=== PATIENT | male | born 1995 | race Caucasian/White ===

== ENCOUNTER 2017-09-06 14:11 | Emergency (ER) | payer MEDICAID ==
[~2017-09-06] VITALS: Ht 185.4 cm; Wt 90.7 kg
[~2017-09-06 14:11] MED LIST: ALBUPOW26; BECL0.07 IN; [UNRECOGNIZED DRUG - CODE]
[2017-09-06 14:35] VITALS: BP 133/56
== END 2017-09-06 15:14 | disposition home or self-care (01) ==
LOC: ER 14:11
DX: S39.012A Strain of muscle, fascia and tendon of lower back, initial encounter (principal); Z79.899 Other long term (current) drug therapy; V43.52XA Car driver injured in collision with other type car in traffic accident, initial encounter; Y93.89 Activity, other specified; Y92.89 Other specified places as the place of occurrence of the external cause; Y99.8 Other external cause status

== ENCOUNTER 2025-02-05 20:10 | Emergency (ER) | payer BC, MEDICAID ==
[~2025-02-05] VITALS: Ht 185.4 cm; Wt 104.0 kg
[2025-02-05 20:11] VITALS: BP 148/92; PULSE 98; RESP 18; TEMP 98.9; O2SAT 97
[2025-02-05] MEDS ORDERED: KETOROLAC TROMETH 60MG/2ML VIAL IM ONE (21:00)
--- NOTE | 2025-02-05 21:33 | ED.PDOC ---
History of Present Illness HPI Comments 29 y/o M, with no pertinent history, presents with c/c mid-back pain. Patient endorses on sudden onset after performing light exertional activity, while playing with his child, earlier. Pain is worse with movement or prolong standing in an upright posture. Denial of any weakness, numbness, tingling, or further associated symptoms. Chief Complaint: Back Pain Time Seen by MD: 20:30 Primary Care Provider: NONE Reviewed Notes: Nurses Notes, Medications, Allergies Allergies: Coded Allergies: Naproxen (Verified Allergy, Unknown, 02/05/25) Home Meds Reported Medications Beclomethasone Dipropionate (Qvar) 40 Mcg Aer, 40 MCG IN, AER 05/04/13 Albuterol (Albuterol) Pow 12/01/12 [Epipen 2-Pak0.3 Mg] (Epipen 2-Fransico) 0.3 MG INJ No Conflict Check, MG 12/01/12 Information Source: Patient Mode of Arrival: Ambulatory Past Medical History PAST MEDICAL HISTORY: Asthma, Denies Surgical History: Denies all surgeries Family History Family History: Unobtainable Social History Smoker: Non-Smoker Alcohol: Denies ETOH Use Drugs: Denies Drug Use Lives In: Home All Other Systems: Reviewed and Negative (As per HPI) Physical Exam General Appearance: No Apparent Distress, Normal HEENT: Normal ENT Inspection, Pharynx Normal, TMs Normal Neck: Full Range of Motion, Non-Tender, Normal, Normal Inspection Respiratory: Chest Non-Tender, Lungs Clear, No Accessory Muscle Use, No Respiratory Distress, Normal Breath Sounds Cardiovascular: No Edema, No JVD, No Murmur, No Gallop, Normal Peripheral Pulses, Regular Rate/Rhythm Breast Exam: Deferred Gastrointestinal: No Organomegaly, Non Tender, No Pulsatile Mass, Normal Bowel Sounds, Soft Genitalia: Deferred Pelvic: Deferred Rectal: Deferred Extremities: No calf tenderness, Normal capillary refill, Normal inspection, Normal range of motion, Non-tender, No pedal edema Musculoskeletal : Location: Bilateral Extremity Location: Back (mid thoracic region ) Apperance: Normal, Tenderness Neurologic: Alert, philosophy instructor II-XII nml as Tested, No Motor Deficits, Normal Affect, Normal Mood, No Sensory Deficits Cerebellar Function: Normal Reflexes: Normal Skin: Dry, Normal Color, Warm Lymphatic: No Adenopathy Was a procedure done? Was a procedure done?: No Differential Dx Considerations may include: sprain, muscle spasm, contusion, fracture, among others X-Ray, Labs, Meds, VS Vital Signs Date Time Temp Pulse Resp B/P (MAP) Pulse Ox O2 Delivery O2 Flow Rate FiO2 02/05/25 20:11 98.9 98 18 148/92 97 98.9 Time of 1ST Reevaluation: 21:00 Reevaluation 1ST: Unchanged Patient Education/Counseling: Diagnosis, Treatment, Need For Follow Up Family Education/Counseling: No Family Present Comments Immediately upon arrival, patient's saw how impacted the lobby was and expressed that he would not be staying he would leave. I convinced him to stay for at least half an hours he even get his studies done and get him out he agreed however patient apparently did elope Additional Information Previous visits: N/A The following tests were ordered, and results were reviewed by me: Thoracic spine X-ray Additional Information was gathered from interviewing the following independent historians: N/A I reviewed and agreed with the following test results read by other providers: Thoracic spine X-ray I discussed treatment and results with medical personnel and: patient SEPSIS Sepsis Screen Date sepsis recognized/suspect: Feb 05, 2025 Time Sepsis recognized/suspect: 2010 Recent Procedure: No On Antibiotic Therapy: No Respiratory Rate >20: No Heart Rate >90: Yes Temp<36 C (96.8 F) or >38.3 C: No SBP <90 or MAP <65 mmHG: No New Acute Mental Status Change: No Is the patient on CPAP, BIPAP,: No Vital Signs Date Time Temp Pulse Resp B/P (MAP) Pulse Ox O2 Delivery O2 Flow Rate FiO2 02/05/25 20:11 98.9 98 18 148/92 97 98.9 Departure 1 Departure Time of Disposition: 01:47 Impression: Primary Impression: Musculoskeletal pain Disposition: 07 LEFT AWOL/ELOPED Condition: Other (Unknown) Critical Care Note Critical Care Time?: No Stability Stability form required: No Heart Score Heart Score: Heart Score Response (Comments) Value History N/A 0 EKG N/A 0 Age N/A 0 Risk Factors N/A 0 Troponin N/A 0 Total 0 I personally scribed for BHARAT LUEVANO MD ([email or web address]) on 02/05/25 at 21:33. Electronically submitted by Dimitris Del Real ([email or web address]). BHARAT LUEVANO MD Feb 05, 2025 21:33
[2025-02-06] MEDS ORDERED: methylPREDNISolone SOD SUCC 125 MG/2 ML VL ONE (10:46)
[2025-02-06] MEDS ORDERED: METH-1181 PO (11:43)
[2025-02-06] MEDS ORDERED: NAPR-746 PO (11:43)
== END 2025-02-05 23:24 | disposition left against medical advice (07) ==
LOC: ER 20:10
DX: M79.18 Myalgia, other site (principal); Z88.6 Allergy status to analgesic agent

== ENCOUNTER 2025-02-06 09:41 | Emergency (ER) | payer BC ==
[~2025-02-06] VITALS: Ht 185.4 cm; Wt 105.6 kg
[2025-02-06] MEDS: methylPREDNISolone SOD SUCC 125 MG/2 ML VL IM ONE (10:43)
[2025-02-06] MEDS: KETOROLAC TROMETH 30 MG/ML 1ML VIAL IM ONE (10:44)
--- NOTE | 2025-02-06 11:12 | DVH ---
INDICATION: R/o fracture COMPARISON: None TECHNIQUE: 3 views of the thoracic spine were obtained. FINDINGS: Mild scoliosis in the lower half of thoracic spine. No loss of vertebral body height. Slight narrowin g of the intervertebral discs IMPRESSION: 1. No acute fracture. Scoliosis.
[2025-02-06] MEDS ORDERED: METH-1181 PO (11:43)
[2025-02-06] MEDS ORDERED: NAPR-746 PO (11:43)
--- NOTE | 2025-02-06 11:43 | ED.PDOC ---
Back pain HPI HPI Comments 29-year-old male with no pertinent MHx presents with a chief complaint of acute back pain [place] Reports instant pain localized to the mid T-spine while playing with the child. The pain began when they caught her oldest son described as a sharp pain in the center of his back. Pain is nonradiating. Aggravated with lateral movements and deep breathing. Is taking 600 mg of ibuprofen with the temporary improvement. No other complaint or concern Denies any saddle anesthesias or any other red flag Chief Complaint: Back Pain Time Seen by MD: 10:02 Primary Care Provider: NONE Reviewed Notes: Nurses Notes, Medications, Allergies Allergies: Coded Allergies: Naproxen (Verified Allergy, Unknown, 02/05/25) Home Meds Reported Medications Beclomethasone Dipropionate (Qvar) 40 Mcg Aer, 40 MCG IN, AER 05/04/13 Albuterol (Albuterol) Pow 12/01/12 [Epipen 2-Pak0.3 Mg] (Epipen 2-Fransico) 0.3 MG INJ No Conflict Check, MG 12/01/12 Information Source: Patient Mode of Arrival: Ambulatory Past Medical History PAST MEDICAL HISTORY: Asthma, Denies Surgical History: Denies all surgeries Family History Family History: Unobtainable Social History Smoker: Non-Smoker Alcohol: Denies ETOH Use Drugs: Denies Drug Use Lives In: Home All Other Systems: Reviewed and Negative (PER HPI) Physical Exam General Appearance: No Apparent Distress, Normal HEENT: Head (Normocephalic), Normal ENT Inspection, Pharynx Normal, TMs Normal Neck: Full Range of Motion, Non-Tender, Normal, Normal Inspection Respiratory: Chest Non-Tender, Lungs Clear, No Accessory Muscle Use, No Res piratory Distress, Normal Breath Sounds Cardiovascular: No Edema, No JVD, No Murmur, No Gallop, Normal Peripheral Pulses, Regular Rate/Rhythm Breast Exam: Deferred Gastrointestinal: No Organomegaly, Non Tender, No Pulsatile Mass, Normal Bowel Sounds, Soft Genitalia: Deferred Pelvic: Deferred Rectal: Deferred Extremities: No calf tenderness, Normal capillary refill, Normal inspection, Normal range of motion, Non-tender, No pedal edema Musculoskeletal : Apperance: Normal Neurologic: Alert, electrical engineering intern II-XII nml as Tested, No Motor Deficits, Normal Affect, Normal Mood, No Sensory Deficits Cerebellar Function: Normal Reflexes: Normal Skin: Dry, Normal Color, Warm Lymphatic: No Adenopathy Was a procedure done? Was a procedure done?: No Back Pain Differential Dx Differential Diagnosis: Fracture, Musculoskeletal Pain X-Ray, Labs, Meds, VS Vital Signs Date Time Temp Pulse Resp B/P (MAP) Pulse Ox O2 Delivery O2 Flow Rate FiO2 02/06/25 09:47 68 18 133/79 100 Current Medications Medications (Trade) Dose Ordered Sig/Kirby Route Start Time Stop Time Status Last Admin Methylprednisolone Sodium Succinate (Solu Medrol) 125 mg ONCE ONCE IM 02/06/25 10:45 02/06/25 10:46 DC 02/06/25 10:43 Ketorolac Tromethamine (Toradol Injection) 30 mg ONCE ONCE IM 02/06/25 10:45 02/06/25 10:46 DC 02/06/25 10:44 X-Ray, Labs, Meds, VS Comment I considered cauda equina, spinal cord compression, vertebral malignancy/mets, acute spinal fracture, vertebral osteomyelitis, epidural abscess, infected or obstructed kidney stone, however this is less likely as the patient does not present with lower back pain red flags symptoms such as bowel or bladder dysfunction, saddle anesthesia, paresthesia, and without any history of malignancy or recent back trauma or spinal interventions. Therefore further imaging studies such as a lumbar MRI were not indicated on today's visit. Presentation most consistent with nonemergent musculoskeletal etiology versus nonemergent disc herniation. ED workup: Defer imaging and lab work for outpatient follow up at this time Disposition: Discharge. Strict return precautions discussed with the patient with full understanding. Supportive care advised (rest, ice, heat, NSAIDs, stretching exercises) Massage muscles with cold pack or ice for 20 minutes 4 times per day. Usually most useful if there is swelling during the first 48 hours Heating pad on the most painful area for 20 minutes to relieve muscle spasm Sleep and the most comfortable sleeping position (usually on the side with knees bent) Light stretching, no strenuous activity, avoid frequent bending, avoid carrying heavy objects Discussed possible benefits of yoga and acupuncture Return precautions discussed including Inability to walk/bear weight Paresthesia/weakness/leg pain Fecal/urinary incontinence Any worsening symptoms Patient is stable for discharge at this time. External notes reviewed. Test results and diagnostic imaging interpreted. All diagnostic findings, discharge care, education and instructions provided Follow-up with PCP in 2 to 3 days Patient verbalized understanding and agreed to treatment plan Vital signs stable, afebrile, no acute distress noted Patient ambulatory with strong steady gait Advised to return precautions for any new or worsening symptoms, return to ER immediately for re-evaluation Patient is aware that the purpose of this visit was for an acute medical emergency requiring emergent stabilization. Chronic conditions, including malignancies have not been ruled out. Patient is instructed to follow up with PCP as directed and discharge instructions for continued care and workup. If unable to arrange follow-up, patient is to return to the emergency department for reassessment. Patient (parent or legal guardian if applicable) was given verbal and written discharge instructions and acknowledges understanding. Time of 1ST Reevaluation: 11:41 Reevaluation 1ST: Improved Patient Education/Counseling: Diagnosis, Treatment Family Education/Counseling: Diagnosis, Treatment SEPSIS Sepsis Screen Date sepsis recognized/suspect: Feb 06, 2025 Time Sepsis recognized/suspect: 946 Recent Procedure: No On Antibiotic Therapy: No Respiratory Rate >20: No Heart Rate >90: No Temp<36 C (96.8 F) or >38.3 C: No SBP <90 or MAP <65 mmHG: No New Acute Mental Status Change: No Is the patient on CPAP, BIPAP,: No Physician Orders Spine Thoracic 2view (02/06/25 10:35) Vital Signs Date Time Temp Pulse Resp B/P (MAP) Pulse Ox O2 Delivery O2 Flow Rate FiO2 02/06/25 09:47 68 18 133/79 100 Medications Medications Dose Ordered Sig/Kirby Route Start Time Stop Time Status Last Admin Dose Admin Ketorolac Tromethamine 30 mg ONCE ONCE IM 02/06/25 10:45 02/06/25 10:46 DC 02/06/25 10:44 Methylprednisolone Sodium Succinate 125 mg ONCE ONCE IM 02/06/25 10:45 02/06/25 10:46 DC 02/06/25 10:43 Departure 1 Departure Time of Disposition: 11:42 Impression: Primary Impression: Acute back pain Qualified Codes: M54.6 - Pain in thoracic spine Disposition: 01 HOME / SELF CARE / HOMELESS Condition: Stable Additional Instructions: Discharge Note: Continue on your medications. Do not drive when taking narcotics. Drink plenty of fluids. Follow up with your primary Dr. Take your prescriptions as ordered. If your condition becomes worse call and follow up with your primary DrRachel for instructions or return to the ER if needed. Thank you for visiting [facility]. e-Prescriptions Methocarbamol (Methocarbamol) 500 Mg Tab 500 MG PO Q8HPRN PRN for 10 Days, #30 TAB 0 Refills Prov: JACKSON MACHUCA NP 02/06/25 Naproxen (Naproxen) 500 Mg Tab 500 MG PO BIDPC for 10 Days, #20 TAB 0 Refills Prov: JACKSON MACHUCA NP 02/06/25 Critical Care Note Critical Care Time?: No Stability Stability form required: No Heart Score Heart Score: Heart Score Response (Comments) Value History N/A 0 EKG N/A 0 Age N/A 0 Risk Factors N/A 0 Troponin N/A 0 Total 0 JACKSON MACHUCA NP Feb 06, 2025 11:43
[2025-02-06 11:56] VITALS: BP 132/74; PULSE 69; RESP 17; TEMP 98.1; O2SAT 97
== END 2025-02-06 12:00 | disposition home or self-care (01) ==
LOC: ER 09:41
DX: M54.9 Dorsalgia, unspecified (principal); Z88.6 Allergy status to analgesic agent; Z79.899 Other long term (current) drug therapy
CPT/HCPCS: 72070; 96372; 99284; J1885; J2919

== ENCOUNTER 2025-02-19 09:19 | Emergency (ER) | payer BC ==
[~2025-02-19] VITALS: Ht 185.4 cm; Wt 107.7 kg
[~2025-02-19 09:19] MED LIST changes: +METH-1181 PO
[2025-02-19 10:26] VITALS: BP 132/64; PULSE 65; RESP 16; TEMP 98.2; O2SAT 100
--- NOTE | 2025-02-19 10:26 | ED.PDOC ---
Musculoskeletal HPI Comments This is a 29-year-old male who comes in with left ankle pain and swelling apparently he went down the hill yesterday he was messing around with his younger brother he states he stepped felt his ankle pop and became immediately swollen and painful. He states he rested over the night took some anti- inflammatories ice which helped but today's painful unable to walk on it states pain is 8/10. Chief Complaint: Lower Extremity Time Seen by MD: 10:24 Primary Care Provider: NONE Reviewed Notes: Nurses Notes, Medications, Allergies Allergies: Coded Allergies: Naproxen (Verified Allergy, Unknown, 02/05/25) Home Meds Active Scripts Methocarbamol (Methocarbamol) 500 Mg Tab, 500 MG PO Q8HPRN PRN for 10 Days, #30 TAB 0 Refills Prov:BRIGETTEJACKSON DIRECTOR INTERNAL AUDIT 02/06/25 Reported Medications Beclomethasone Dipropionate (Qvar) 40 Mcg Aer, 40 MCG IN, AER 05/04/13 Albuterol (Albuterol) Pow 12/01/12 [Epipen 2-Pak0.3 Mg] (Epipen 2-Fransico) 0.3 MG INJ No Conflict Check, MG 12/01/12 Information Source: Patient Mode of Arrival: Ambulatory Past Medical History PAST MEDICAL HISTORY: Asthma, Denies Surgical History: Denies all surgeries Family History Family History: Unobtainable Social History Smoker: Non-Smoker Alcohol: Denies ETOH Use Drugs: Denies Drug Use Lives In: Home Musculoskeletal: reports: joint pain, joint swelling, others (left ankle) Physical Exam General Appearance: No Apparent Distress, None, Normal HEENT: Normal ENT Inspection, PERRL/EOMI, Pharynx Normal, TMs Normal Neck: Full Range of Motion, Non-Tender, Supple Respiratory: Lungs Clear, Normal Breath Sounds Cardiovascular: Regular Rate/Rhythm Breast Exam: None, Deferred Gastrointestinal: Non Tender, Normal Bowel Sounds Genitalia: Deferred Pelvic: Deferred Rectal: Deferred Extremities: Decreased range of motion, Swelling, Tender, Other (Left ankle with swelling and tenderness over the lateral malleolus. Good pulses) Neurologic: Alert, Normal Affect, Normal Mood Cerebellar Function: NOT DONE Reflexes: Normal Skin: Dry, Warm Lymphatic: No Adenopathy Was a procedure done? Was a procedure done?: No Differential Diagnosis EXT Differential Diagnosis: Fracture, Dislocation X-Ray, Labs, Meds, VS Vital Signs Date Time Temp Pulse Resp B/P (MAP) Pulse Ox O2 Delivery O2 Flow Rate FiO2 02/19/25 10:26 65 16 100 Room Air 02/19/25 10:26 98.2 65 16 132/64 (86) 100 98.2 02/19/25 09:19 97.7 71 16 134/73 100 97.7 X-Ray, Labs, Meds, VS Comment Patient seen and examined by me. Patient had a fall yesterday with a significant amount of swelling on his ankle we will order an x-ray.. X-ray does not show any fracture we will place him in an Hermelindo wrap and crutches and give him some anti-inflammatories. He can get a note off of work if indicated.. ORDERING PHYSICIAN: SLIME MINOR PROCEDURE(s): LANKL - L ANKLE 3 VIEW REASON: fall ORDER NUMBER(s): [id number], ACCESSION NUMBER(s): [id number] X-ray left ankle Technique: AP lateral and oblique views REASON FOR EXAM: fall INDICATION: fall FINDINGS: No fractures or dislocations. No erosions or periosteal reaction. Articular surfaces are smooth. Small joint effusion IMPRESSION: 1. . SmallNo definite fracture. joint effusion. ATED BY: CHAS BUSTILLOS MD DICTATED DATE/TIME: 02/19/25 1050 SIGNED BY: CHAS BUSTILLOS MD SIGNED DATE/TIME: 02/19/25 1050 Time of 1ST Reevaluation: 11:01 Reevaluation 1ST: Improved Patient Education/Counseling: Diagnosis, Treatment, Prognosis, Need For Follow Up Family Education/Counseling: No Family Present Departure 1 Departure Time of Disposition: 11:01 Impression: Primary Impression: Left ankle sprain Disposition: 01 HOME / SELF CARE / HOMELESS Condition: Good Additional Instructions: Limited duty for the next three days, limited walking Use Hermelindo wrap and crutches at all times until pain-free Ice and elevate today X-ray shows no fracture Take Motrin as directed for pain and swelling e-Prescriptions Ibuprofen Micronized (Ibuprofen) 600 Mg Tab 600 MG PO Q6HPRN PRN for 5 Days, #20 TAB Prov: SLIME MINOR TOURIST INFORMATION OFFICER 02/19/25 Discharged With: Self Critical Care Note Critical Care Time?: No Stability Stability form required: Yes SLIME MINOR TOURIST INFORMATION OFFICER Feb 19, 2025 10:26
--- NOTE | 2025-02-19 10:52 | DVH ---
X-ray left ankle Technique: AP lateral and oblique views REASON FOR EXAM: fall INDICATION: fall FINDINGS: No fractures or dislocations. No erosions or periosteal reaction. Articular surfaces are sm ooth. Small joint effusion IMPRESSION: 1. . SmallNo definite fracture. joint effusion.
[2025-02-19] MEDS ORDERED: IBUP1TAB5 PO (11:04)
== END 2025-02-19 11:11 | disposition home or self-care (01) ==
LOC: ER 09:19
DX: S93.402A Sprain of unspecified ligament of left ankle, initial encounter (principal); J45.909 Unspecified asthma, uncomplicated; Z79.899 Other long term (current) drug therapy; Z79.51 Long term (current) use of inhaled steroids; Z88.6 Allergy status to analgesic agent; X50.9XXA Other and unspecified overexertion or strenuous movements or postures, initial encounter; Y93.89 Activity, other specified; Y92.89 Other specified places as the place of occurrence of the external cause; Y99.8 Other external cause status
CPT/HCPCS: 73610